=== PATIENT | male | born 1995 | race Caucasian/White ===

== ENCOUNTER 2018-10-02 10:39 | Emergency (ER) | payer OTHER ==
[2018-10-02 10:47] VITALS: BP 138/75
--- NOTE | 2018-10-02 11:45 | XRAY Report ---
Reason: jammed in car door, appears dislocated Procedure Date: 10/02/2018 Accession Number: [id number] / [id number] Procedure: XR - Finger(s) LT CPT Code: FULL RESULT: EXAM: LEFT THIRD DIGIT RADIOGRAPHY EXAM DATE: 10/02/2018 11:03 AM. CLINICAL HISTORY: Jammed in car door, appears dislocated. COMPARISON: WRIST 3 VIEW RT 01/20/2013 12:25 PM. TECHNIQUE: 3 views. FINDINGS: Bones: There is increased sclerosis noted about the distal aspect of the middle phalanx of the third digit. Correlate for previous sequela of trauma. No evidence of acute fracture seen. Joints: Minimal osteoarthritic changes present at that DIP joint of the third digit. No subluxations. No evidence of dislocation noted. Soft Tissues: Mild distal soft tissue swelling noted. IMPRESSION: 1. No evidence of acute fracture seen. 2. Increased sclerosis noted about the distal aspect of the middle phalanx of the third digit, with mild associated osteoarthritic changes. Correlate for previous sequela of trauma. RADIA
== END 2018-10-02 12:21 | disposition left against medical advice (07) ==
LOC: ED 10:39
DX: S63.253A Unspecified dislocation of left middle finger, initial encounter (principal); W23.0XXA Caught, crushed, jammed, or pinched between moving objects, initial encounter; Y92.810 Car as the place of occurrence of the external cause; Z53.21 Procedure and treatment not carried out due to patient leaving prior to being seen by health care provider
CPT/HCPCS: 73140

== ENCOUNTER 2019-02-26 14:02 | Emergency (ER) | payer OTHER ==
[2019-02-26] MEDS ORDERED: TETANUS/DIPHTHERIA/PERTUSSIS 0.5 ML SYRINGE IM ONE (14:40)
[2019-02-26] MEDS ORDERED: LIDOCAINE 2%-EPI 1:100000 20 ML MDV SUBQ STA (14:40)
--- NOTE | 2019-02-26 14:45 | ED Physician Documentation ---
PD HPI LOWER EXT INJURY - Stated complaint Stated Complaint: LT LEG LAC - Chief complaint Chief Complaint: Laceration - History obtained from History obtained from: Patient - History of Present Illness PD HPI LOW EXT INJURY LOCATION: Left Type of injury: Laceration (from broken pot) Where injury occurred: Home Timing - onset: How many hours ago (1) Timing - duration: Hours (1) Timing - details: Abrupt onset Pain level max: 5 Pain level now: 5 Improved by: Rest Worsened by: Moving, Palpating Associated symptoms: No: Weakness, Numbness, Tingling, Swelling, Discolored Contributing factors: No: Anticoagulated Recently seen: Not recently seen - Additional information Additional information: unknown last Td Review of Systems Constitutional: denies: Fever Neurologic: denies: Focal weakness, Numbness PD PAST MEDICAL HISTORY - Past Medical History Past Medical History: No Cardiovascular: None Respiratory: None Neuro: None Endocrine/Autoimmune: None GI: None : None HEENT: None Psych: None Musculoskeletal: None Derm: None - Past Surgical History Past Surgical History: No - Present Medications Home Medications: Ambulatory Orders Medication Instructions Recorded Confirmed raNITIdine [Zantac] 150 mg PO DAILY #20 tablet 10/05/15 Cephalexin [Keflex] 500 mg PO Q6H #28 capsule 02/26/19 - Allergies Allergies/Adverse Reactions: Allergies Allergy/AdvReac Type Severity Reaction Status Date / Time No Known Drug Allergies Allergy Verified 10/05/15 09:02 - Social History Does the pt smoke?: Yes Smoking Status: Current every day smoker Does the pt drink ETOH?: Yes Does the pt have substance abuse?: Yes Substance Use and Type: Marijuana - Immunizations Immunizations are current?: No Immunizations: TDAP >10years/unknown - POLST Patient has POLST: No PD ED PE NORMAL - Vitals Vital signs reviewed: Yes - General General: Alert and oriented X 3 - HEENT HEENT: Moist mucous membranes - Neck Neck: Supple, no meningeal sign - Cardiac Cardiac: RRR - Respiratory Respiratory: No respiratory distress, Clear bilaterally - Derm Derm: Warm and dry - Extremities Extremities: Other (L ankle - 10cm, subctuaneous. NVI. no tendon injury. ) - Neuro Neuro: Alert and oriented X 3 Results - Vitals Vitals: Vital Signs - 24 hr 02/26/19 02/26/19 14:07 15:35 Temperature 37.3 C 37.1 C Heart Rate 98 84 Respiratory 18 18 Rate Blood Pressure 143/88 H 152/100 H O2 Saturation 99 98 Oxygen O2 Source Room air Procedures - Laceration (location) L ankle Length in cm: 10 Wound type: Linear, Into subcut fat, Contaminated (Small amount of dirt and debris. This is removed) Neurovascular status: Sensory intact, Motor intact, Vascular intact Tendon involvement: Tendon intact Anesthesia: Lidocaine 2% with epi Wound Preparation: Irrigated copiously NS (500ml) Skin layer closure: Willis Other: Patient tolerated well, No complications, Neurovascular intact Complexity: Simple PD MEDICAL DECISION MAKING - ED course Complexity details: considered differential, d/w patient ED course: 24-year-old male with a large laceration to the left lower leg. No tendon injury. No muscle injury. Irrigated with normal saline. Debris removed. Given Ancef and Tdap. Repaired with willis. Warnings of infection and instructions on wound care given at bedside. Also counseled on how to minimize scarring. Patient counseled regarding signs and symptoms for which I believe and urgent re-evaluation would be necessary. Patient with good understanding of and agreement to plan and is comfortable going home at this time This document was made in part using voice recognition software. While efforts are made to proofread this document, sound alike and grammatical errors may occur. Departure - Departure Disposition: 01 Home, Self Care Clinical Impression: Laceration of left lower leg Qualifiers: Encounter type: initial encounter Qualified Code(s): S81.812A - Laceration without foreign body, left lower leg, initial encounter Condition: Good Instructions: ED Laceration Ext Sutr Stap Tape Follow-Up: your,doctor in 4 days for wound check [Other] Prescriptions: Cephalexin [Keflex] 500 mg PO Q6H #28 capsule Comments: Take all antibiotics until gone. Follow-up with your doctor in 3 to 4 days for wound check. The willis should be removed in approximately 14 days. Return if you notice redness swelling or drainage from the wound. Discharge Date/Time: 02/26/19 15:37
[2019-02-26] MEDS ORDERED: ceFAZolin 1 GM VIAL IM STA (15:01)
[2019-02-26 15:36] VITALS: BP 152/100
== END 2019-02-26 15:37 | disposition home or self-care (01) ==
LOC: ED 14:02
DX: S81.812A Laceration without foreign body, left lower leg, initial encounter (principal); W01.118A Fall on same level from slipping, tripping and stumbling with subsequent striking against other sharp object, initial encounter; Y92.009 Unspecified place in unspecified non-institutional (private) residence as the place of occurrence of the external cause; Z23 Encounter for immunization; F17.200 Nicotine dependence, unspecified, uncomplicated
CPT/HCPCS: 12004; 90471; 96372

== ENCOUNTER 2019-04-08 14:47 | Emergency (ER) | payer OTHER ==
[2019-04-08 14:55] VITALS: BP 135/80
[2019-04-08] MEDS ORDERED: BUFFERED LIDOCAINE 10 ML SYRINGE SUBQ STA (15:02)
--- NOTE | 2019-04-08 15:03 | ED Physician Documentation ---
PD HPI SKIN - Stated complaint Stated Complaint: L LEG WOUND CHECK - Chief complaint Chief Complaint: Wound - History obtained from History obtained from: Patient - History of Present Illness Timing - onset: Other (About a month ago he had a laceration of the left leg. It was healing well and he had the sutures out at the prescribed time. Over the last week he is had more swelling there though. Some redness. No fevers.) Review of Systems Constitutional: reports: Reviewed and negative Cardiac: reports: Reviewed and negative Respiratory: reports: Reviewed and negative PD PAST MEDICAL HISTORY - Past Medical History Cardiovascular: None Respiratory: None Neuro: None Endocrine/Autoimmune: None GI: None : None HEENT: None Psych: None Musculoskeletal: None Derm: None - Past Surgical History Past Surgical History: No - Present Medications Home Medications: Ambulatory Orders Medication Instructions Recorded Confirmed Cephalexin [Keflex] 500 mg PO Q6H #28 capsule 04/08/19 Hydrocodone/Acetaminophen 1 - 2 each PO Q6H PRN #10 tablet 04/08/19 [Hydrocodon-Acetaminophen 5-325] - Allergies Allergies/Adverse Reactions: Allergies Allergy/AdvReac Type Severity Reaction Status Date / Time No Known Drug Allergies Allergy Verified 04/08/19 14:54 - Social History Does the pt smoke?: Yes Smoking Status: Current every day smoker Does the pt drink ETOH?: Yes Does the pt have substance abuse?: Yes - Immunizations Immunizations are current?: No Immunizations: TDAP >10years/unknown - POLST Patient has POLST: No PD ED PE NORMAL - Vitals Vital signs reviewed: Yes - General General: Alert and oriented X 3, No acute distress - Extremities Extremities: Other (There is a laceration that is well-healed to the pos terolateral left lower calf. Mid laceration there is a swollen area and on ultrasound it is consistent with abscess.) - Neuro Neuro: Alert and oriented X 3, Normal speech Results - Vitals Vitals: Vital Signs - 24 hr 04/08/19 14:52 Temperature 36.7 C Heart Rate 64 Respiratory 16 Rate Blood Pressure 135/80 H O2 Saturation 98 Oxygen O2 Source Room air Procedures - Abscess I&D (location) L leg Preparation: Confirmed with ultrasound, Chlorhexadine, Lidocaine 1% Incision: Incised with scalpel, Purulent drainage, Loculations broken, Culture obtained. No: Packed (too small) Other: Pt tolerated well, Dressing applied, Antibiotic prescribed Departure - Departure Disposition: 01 Home, Self Care Clinical Impression: Wound infection Condition: Good Record reviewed to determine appropriate education?: Yes Instructions: ED Abscess IandD Prescriptions: Cephalexin [Keflex] 500 mg PO Q6H #28 capsule Hydrocodone/Acetaminophen [Hydrocodon-Acetaminophen 5-325] 1 - 2 each PO Q6H PRN #10 tablet PRN Reason: pain Comments: We are performing a wound culture, the results should be done in 48-72 hours. If antibiotic change is necessary we will call you. Return if worse in the meantime, especially if you develop increased pain, fevers, cannot keep down the medication. Otherwise follow-up with your physician in approximately 2-3 days. Your blood pressure was elevated today on check into the emergency department. This does not mean that you have hypertension, it is a common phenomenon to come to the emergency department and have elevated blood pressure. I recommend that you see your primary care physician within the week to have it rechecked when you are feeling better. Do not drink or drive while taking narcotic pain medication. Note that many narcotic pain relievers also contain Tylenol/acetaminophen. Pl ease ensure that your total dose of acetaminophen from all sources does not exceed 3 g (3000 mg) per day. You may get constipated while on this medication. Take a stool softener such as Colace twice a day while you are on it. Also add an [id number] laxative such as senna or MiraLAX on any day that you do not have a bowel movement. If you received a narcotic pain medication or sedative while in the emergency department, do not drive for the next 24 hours.
== END 2019-04-08 15:22 | disposition home or self-care (01) ==
LOC: ED 14:47
DX: L02.416 Cutaneous abscess of left lower limb (principal); R03.0 Elevated blood-pressure reading, without diagnosis of hypertension; F17.200 Nicotine dependence, unspecified, uncomplicated
CPT/HCPCS: 10060; 87070; 87205